=== PATIENT | male | born 1955 | race Caucasian/White ===

== ENCOUNTER → 2016-11-14 | Outpatient (CLI) | payer MEDICARE, OTHER | END | disposition home or self-care (01) | LOC: PCVCCLINIC 16:49 | PROVIDERS: ATTEND Internal Medicine Cardiovascular Disease | DX: I25.118 Atherosclerotic heart disease of native coronary artery with other forms of angina pectoris (principal); I10 Essential (primary) hypertension; I25.5 Ischemic cardiomyopathy; J44.9 Chronic obstructive pulmonary disease, unspecified; I77.89 Other specified disorders of arteries and arterioles; E78.01 Familial hypercholesterolemia; E78.00 Pure hypercholesterolemia, unspecified; M19.90 Unspecified osteoarthritis, unspecified site; Z95.5 Presence of coronary angioplasty implant and graft; Z79.82 Long term (current) use of aspirin; Z87.891 Personal history of nicotine dependence; Z88.8 Allergy status to other drugs, medicaments and biological substances; Z85.89 Personal history of malignant neoplasm of other organs and systems | CPT/HCPCS: 80061; 93005; G0463 ==

== ENCOUNTER → 2016-11-16 | Outpatient (CLI) | payer MEDICARE ==
[~2016-11-16] MED LIST: REGADENOSON 0.4 MG/5 ML DISP.SYRIN. IV ONE
--- NOTE | 2016-11-16 10:01 | PCVCIMAG ---
APPROVED REPORT Study performed: 11/16/2016 07:41:27 EXAM: Comprehensive 2D, Doppler, and color-flow Echocardiogram Patient Location: Echo lab Status: routine Other Information Study Quality: Adequate Indications Dyspnea CAD Chest Pain Ischemic Cardiomyopathy 2D Dimensions LVEF(%): 50.94 (>50%) IVSd: 10.68 (7-11mm) LVDd: 52.84 mm PWd: 9.69 (7-11mm) LVDs: 39.00 (25-40mm) Left Atrium: 44.27 (27-40mm) Aortic Root: 33.66 mm LV Single Plane 4CH: 45.94 % LV Single Plane 2CH: 50.32 %Rolon's LVEF: 48.13 % Biplane EF: 47.2 % Volumes Left Atrial Volume (Systole) Single Plane 4CH: 71.33 mLSingle Plane 2CH: 73.54 mL LA ESV Index: 61.00 mL/m2 Aortic Valve AoV Peak Janes.: 1.49 m/s AO Peak Gr.: 8.83 mmHgLVOT Max P.67 mmHg LVOT Max V: 0.96 m/s Mitral Valve E/A Ratio: 1.4 MV Decel. Time: 225.03 ms MV E Max Janes.: 0.60 m/s MV A Janes.: 0.43 m/s IVRT: 100.35 ms Pulmonary Valve PV Peak Janes.: 0.78 m/sPV Peak Gr.: 2.43 mmHg Pulmonary Vein P Vein S: 0.44 m/sP Vein A: 0.37 m/s P Vein D: 0.63 m/sP Vein A Dur.: 148.8 msec P Vein S/D Ratio: 0.70 Tricuspid Valve TR Peak Janes.: 2.20 m/s TR Peak Gr.: 19.40 mmHg Left Ventricle The left ventricle is normal size. There is normal LV segmental wall motion. There is normal left ventricular wall thickness. Left ventricular systolic function is mildly decreased.mild distal septal apex hypo LVEF is 45-50%. Grade II - pseudonormal filling dynamics. Right Ventricle The right ventricle is normal size. The right ventricular systolic function is normal. Atria The left atrium size is mildly dilated. The right atrium size is normal. Aortic Valve The aortic valve is normal in structure. No aortic regurgitation is present. There is no aortic valvular stenosis. Mitral Valve The mitral valve is normal in structure. Mild mitral regurgitation. No evidence of mitral valve stenosis. Tricuspid Valve The tricuspid valve is normal in structure. Trace tricuspid regurgitation with PAP of 26 mmHg. Pulmonic Valve The pulmonary valve is normal in structure. There is no pulmonic valvular regurgitation. Great Vessels The aortic root is normal in size. IVC is normal in size and collapses with >50% inspiration Pericardium There is no pericardial effusion. <Conclusion> The left ventricle is normal size. Left ventricular systolic function is mildly decreased. LVEF is 45-50%. Grade II - pseudonormal filling dynamics. The left atrium size is mildly dilated. The aortic valve is normal in structure. Mild mitral regurgitation. Left ventricular systolic function is mildly decreased.mild distal septal apex hypo Mild mitral regurgitation. There is no pericardial effusion. Trace tricuspid regurgitation with PAP of 26 mmHg.
--- NOTE | 2016-11-16 13:45 | PCVCIMAG ---
APPROVED REPORT Exam: Nuclear Stress Test Indication: CAD , Dyspnea, Increased Fatigue Patient Location: Out-Patient Stress Nurse: Krista Ruiz RN, Ayanna Cm RN AL Tech:Catherine Ginette [facility] Ht: 5 ft 10 in Wt: 180 lbs BSA: 2.00 m2 HR: 60 bpm BP: 142/79 mmHg BMI: 25.82 Rhythm: SR Medical History Medical History: HTN, Hyperlipidemia, COPD, Smoking - Current, SD, Dyspnea Allergies: Alteplase Cardiac Risk Factors: Age Previous Cardiac Procedures: PCI Stress Test Details Stress Test: Pharmacologic stress testing performed using 0.4 mg of regadenoson per 5 mL given IV over 10 seconds. Reason for pharmacologic stress test: physical limitation. HR Resting HR: 60 bpmMax Heart Rate (APMHR): 157 bpm Max HR Achieved: 82 bpmTarget HR (85% APMHR): 133 bpm % of APMHR: 52 Recovery HR: 69 bpm BP Resting BP: 142/79 mmHg Max BP: 144/71 mmHg Recovery BP: 150/72 mmHg ECG Resting ECG: Sinus Rhythm, nonspecific ST-T abnormalities Stress ECG: Sinus Rhythm, nonspecific ST-T abnormalities ST Change: Non-ischemic Clinical Reason for Termination: Completed protocol Stress Symptoms: Dyspnea Exercise duration: 0 min 55 sec Symptoms resolved during recovery. AL EXAM: Myocardial Perfusion REST/STRESS Imaging Protocol: Rest Tc-99m/Stress Tc-99m 1 day Resting Data Rest SPECT myocardial perfusion imaging was performed in supine position 45 minutes following the intravenous injection of 11.9 mCi of Tc-99m Sestamibi. Time of rest injection: 829 Date: 11/16/2016 Pharmacologic Stress Pharmacologic stress test was performed by injecting Regadenoson 0.4 mg IV push followed by the intravenous injection of 35.1 mCi of Tc-99m Sestamibi. Time of stress injection: 0 Date: 11/16/2016 Administration Route: IV Administration Site: Right AC Gated Stress SPECT was performed 45 minutes after stress injection. The images were gated to evaluate regional wall motion and calculate left ventricular ejection fraction. Exercise Stress Administration Site: Right Arm Study Quality Study: Good Artifact: Mild Diaphragmatic artifact Study Data Post stress, the left ventricular ejection was 60%.. SSS: 1 SRS: 3 SDS: 0 TID = 0.99. Perfusion There is a small area of mildly reduced uptake in the basal segment of the inferior wall which is seen on the stress images as well as the resting images. This area thickens and moves normally and is most consistent with attenuation artifact. Wall Motion Normal left ventricular wall motion. Clinical Findings: Nondiagnostic EKG Findings: Nonischemic Nuclear Conclusion This study is of low probability for inducible ischemia or prior infarct. Normal global and segmental LV systolic function.
== END | disposition home or self-care (01) ==
LOC: PCVCIMAG 07:44
PROVIDERS: ATTEND Internal Medicine Cardiovascular Disease
DX: I08.1 Rheumatic disorders of both mitral and tricuspid valves (principal); I25.10 Atherosclerotic heart disease of native coronary artery without angina pectoris; I25.5 Ischemic cardiomyopathy; I10 Essential (primary) hypertension; J44.9 Chronic obstructive pulmonary disease, unspecified; I25.2 Old myocardial infarction; E78.5 Hyperlipidemia, unspecified; E78.01 Familial hypercholesterolemia; I77.89 Other specified disorders of arteries and arterioles; Z72.0 Tobacco use; Z79.82 Long term (current) use of aspirin
CPT/HCPCS: 78452; 93017; 93306; A9500; J2785

== ENCOUNTER → 2017-03-23 | Outpatient (CLI) | payer MEDICARE ==
--- NOTE | 2017-03-23 19:31 | PCVCIMAG ---
EXAM: BILATERAL CAROTID DUPLEX INDICATION: Carotid Occlusive Disease. Previous neck radiation. FINDINGS: Doppler Measurements (centimeters per second): RIGHT: Peak CCA-103, Peak ECA-116, Diastolic ICA-33, Peak ICA-137, ICA/CCA Ratio-1.3. LEFT: Peak CCA-316, Peak ECA-188, Diastolic ICA-40, Peak ICA-80, ICA/CCA Ratio-0.3. RIGHT CAROTID: The carotid bulb has mild plaque. The proximal internal carotid artery shows 40-50% stenosis. The common carotid artery shows no significant stenosis. The external carotid artery shows no significant stenosis. LEFT CAROTID: The carotid bulb has mild plaque. The proximal internal carotid artery shows <40% stenosis. The common carotid artery shows 80% stenosis. The external carotid artery shows 60% stenosis. Antegrade flow in both vertebral arteries. IMPRESSION: <40% stenosis of the right internal carotid artery with mild plaque. <40% stenosis of the left internal carotid artery with mild plaque. 80% smooth tapered stenosis mid/upper left common carotid artery. LOC:[place] [id number]
== END | disposition home or self-care (01) ==
LOC: PCVCCLINIC 14:14
PROVIDERS: ATTEND Internal Medicine Cardiovascular Disease
DX: I65.23 Occlusion and stenosis of bilateral carotid arteries (principal); I25.10 Atherosclerotic heart disease of native coronary artery without angina pectoris; I10 Essential (primary) hypertension; I25.5 Ischemic cardiomyopathy; E78.00 Pure hypercholesterolemia, unspecified; J44.9 Chronic obstructive pulmonary disease, unspecified; I77.9 Disorder of arteries and arterioles, unspecified; M79.605 Pain in left leg; M79.604 Pain in right leg; R10.30 Lower abdominal pain, unspecified; F17.210 Nicotine dependence, cigarettes, uncomplicated; Z79.82 Long term (current) use of aspirin; Z79.899 Other long term (current) drug therapy
CPT/HCPCS: 80061; 93005; 93880; G0463

== ENCOUNTER → 2017-04-24 | Outpatient (CLI) | payer MEDICARE | END | disposition home or self-care (01) | LOC: PCVCIMAG 08:43 | DX: I73.9 Peripheral vascular disease, unspecified (principal); R10.30 Lower abdominal pain, unspecified; I70.8 Atherosclerosis of other arteries | CPT/HCPCS: 93925; 93978 ==

== ENCOUNTER → 2017-09-21 | Outpatient (CLI) | payer MEDICARE | END | disposition home or self-care (01) | LOC: PCVCCLINIC 14:18 | DX: I25.10 Atherosclerotic heart disease of native coronary artery without angina pectoris (principal); I10 Essential (primary) hypertension; I46.9 Cardiac arrest, cause unspecified; G89.29 Other chronic pain; C76.0 Malignant neoplasm of head, face and neck; E78.00 Pure hypercholesterolemia, unspecified; I25.5 Ischemic cardiomyopathy; I73.9 Peripheral vascular disease, unspecified; I65.23 Occlusion and stenosis of bilateral carotid arteries; F17.200 Nicotine dependence, unspecified, uncomplicated; Z88.8 Allergy status to other drugs, medicaments and biological substances; Z79.82 Long term (current) use of aspirin; Z79.899 Other long term (current) drug therapy | CPT/HCPCS: 93005; G0463 ==

== ENCOUNTER → 2018-03-29 | Outpatient (CLI) | payer MEDICARE ==
--- NOTE | 2018-03-29 11:18 | PCVCIMAG ---
EXAM: BILATERAL CAROTID DUPLEX INDICATION: Carotid occlusive disease. Previous radiation to the neck. FINDINGS: Doppler Measurements (centimeters per second): RIGHT: Peak CCA-128, Peak ECA-128, Diastolic ICA-49, Peak ICA-162, ICA/CCA Ratio-1.5. LEFT: Peak CCA-0, Peak ECA-0, Diastolic ICA-0, Peak ICA-0, ICA/CCA Ratio-0. RIGHT CAROTID: The carotid bulb has moderate plaque. The proximal internal carotid artery shows 50-60% stenosis. The common carotid artery shows no significant stenosis. The external carotid artery shows no significant stenosis. LEFT CAROTID: Since March 2017 complete occlusion has developed in the left common carotid artery, left internal carotid artery, and proximal left external carotid artery. Antegrade flow in both vertebral arteries. IMPRESSION: 50-60% stenosis of the right internal carotid artery with moderate plaque. Interval occlusion of the left common carotid artery, cervical left internal carotid artery, and left external carotid artery since 2016 study. LOC:[id number]
== END | disposition home or self-care (01) ==
LOC: PCVCIMAG 09:28
PROVIDERS: ATTEND Internal Medicine Cardiovascular Disease
DX: I65.23 Occlusion and stenosis of bilateral carotid arteries (principal); I25.10 Atherosclerotic heart disease of native coronary artery without angina pectoris; I25.5 Ischemic cardiomyopathy; I10 Essential (primary) hypertension; E78.00 Pure hypercholesterolemia, unspecified; C76.0 Malignant neoplasm of head, face and neck; R07.9 Chest pain, unspecified; J44.9 Chronic obstructive pulmonary disease, unspecified; F17.210 Nicotine dependence, cigarettes, uncomplicated
CPT/HCPCS: 36415; 80061; 93005; 93880; G0463

== ENCOUNTER → 2018-04-02 | Outpatient (CLI) | payer MEDICARE ==
[~2018-04-02] MED LIST changes: +DIAZEPAM 10 MG TABLET. ONE; +HEPARIN for ARTERIAL LINE 1,500 ML ONE; +IOHEXOL 300 MG/ML 100ML VIAL. ONE; +IOHEXOL 350 MG/ML 100 ML VIAL. ONE; +LIDOCAINE 1%/EPI 1:100,000 20 ML VIAL. ONE; +MIDAZOLAM HCL/PF 2 MG/2 ML VIAL. ONE; -REGADENOSON 0.4 MG/5 ML DISP.SYRIN. IV ONE; +fentaNYL PF VIAL 100 MCG/2 ML VIAL ONE; +hydrALAZINE 20 MG/ML VIAL. ONE
--- NOTE | 2018-04-02 23:48 | PCVCINTER ---
EXAM: 1. CERVICOEPHALIC ARCH AORTOGRAM. 2. BILATERAL CAROTID ANGIOGRAPHY. 3. LEFT VERTEBROBASILAR ANGIOGRAPHY. 4. BILATERAL RENAL ANGIOGRAPHY. 5. BILATERAL ILEOFEMORAL ANGIOGRAPHY. INDICATION: Carotid occlusive disease. Left subclavian steal. Hypertension. Renal atherosclerosis. Left amaurosis fugax. Leg pain. PROCEDURE: Procedure and risks of the procedures listed above were discussed with the patient and consent obtained. Risks including but not limited to bleeding, infection, stroke, vascular injury, neurologic injury, embolization, allergic reactions, and contrast-induced nephropathy requiring dialysis were discussed as appropriate and consent obtained. Patient was placed on the angiography table. IV conscious sedation was used throughout procedure with appropriate monitoring from 3:00 PM through 4:00 PM. The right groin was prepped and draped in the normal sterile fashion. Ultrasound was used to interrogate the right groin and demonstrate the right common femoral artery. An ultrasound image was saved. Under ultrasound guidance a 21 gauge needle was used to gain access into the right common femoral artery and a 6F vascular sheath was placed. Catheter was placed into the ascending aorta and cervicocephalic aortic arch angiogram performed. Catheter was placed into the suprarenal abdominal aorta and abdominal aortic angiogram performed. Catheter was placed at the aortic bifurcation and bilateral iliofemoral angiography performed. Catheter was placed into the right common carotid artery and right common carotid angiogram performed. Catheter was placed into the left common carotid artery and left common carotid angiogram performed. Catheter was placed into the left subclavian artery and left vertebro-basilar angiogram performed. Catheter was placed into the right renal artery and right renal angiogram performed. Catheter was placed into the left renal artery and left renal angiogram performed. Dr. Herman joined the procedure and he then performed coronary angiography. Please see his separate dictation for full details. Catheters and wires were removed and hemostasis obtained using the FISH device. No immediate complications. FINDINGS: Cervicocephalic arch aortogram: The innominate artery is patent. There is occlusion of the left common carotid artery shortly after its origin which arises as a common origin with the innominate artery. The left subclavian artery is patent. Right common carotid angiogram: This injection fills the right and left anterior and middle cerebral distributions which are otherwise unremarkable. The petrous and cavernous right carotid artery is patent. The cervical right internal carotid artery is widely patent throughout. The right common carotid artery shows mild ulcerative plaque proximal portion but no evidence of flow-limiting stenosis. The right external iliac artery shows good patency. Left common carotid angiogram: There is occlusion of the left common carotid artery shortly after its origin. The left internal carotid artery is not visualized on any injection consistent with occlusion as noted on prior ultrasound. Left vertebrobasilar angiogram: Left vertebral artery is patent as is the basilar artery and left posterior cerebral artery. Flash filling of the left middle cerebral distribution is seen. The right P1 segment is hypoplastic. Abdominal aortogram: There is one right and 2 left renal arteries. Mild ectasia infrarenal abdominal aorta. Right renal angiogram: Minimal plaque proximal vessel does not cause significant stenosis. Left renal angiogram: There are 2 renal arteries with the upper renal artery being accessory renal artery. Lower renal artery is dominant showing mild plaque proximal without significant stenosis. Bilateral iliofemoral angiogram: The right common and external iliac arteries are patent. High-grade stenosis right internal iliac artery. Right common femoral and profunda femoral arteries show adequate patency. Moderate plaque left common iliac artery without significant stenosis. Left external iliac arteries patent. Mild stenosis left internal iliac artery. Left common femoral and profunda femoral arteries are patent. Visualized portions of the upper superficial femoral arteries are patent bilaterally. IMPRESSION: Complete occlusion cervical left common carotid and internal carotid arteries as reviewed above. The right carotid artery is widely patent and supplies the anterior and middle cerebral distributions bilaterally. LOC:OFFICE
--- NOTE | 2018-04-03 17:39 | PCVCINTER ---
APPROVED REPORT Study performed: 04/02/2018 16:25:35 Patient Details Patient Status: Out-Patient Room #: 4 The patient is a 62 year-old Male Event Personnel Margarita Xavier RN, Wenceslao De La Torre RN, Jalil Bolanos RT(R), Salome Mustafa RT(R)() Risk Factors Arterial HypertensionDysplipidemia (Type: 1), Cerebrovascular DiseaseFamily HistoryPeripheral Vascular Disease, Chronic Lung DiseaseHypercholesterolemia, Last Creatanine 0.7Tobacco History (Current/Recent(w/in 1 year)) Previous Procedures/Diagnoses Previous PCI, Previous CHFPrevious AL, CHF, CAD, Cerebrovascular disease, Chronic lung disease->COPD, Hypertension Procedure Narrative The right coronary system was accessed and visualized with a JR4 catheter. The left coronary system was accessed and visualized with a JL4 catheter. The left ventricle was accessed and visualized with a Straight Pigtail catheter. Left ventriculogram was performed in BARKLEY projection. Closure device was deployed with a 6 Fr FISH. Hemostasis was obtained with manual pressure following sheath removal without any complications. The patient tolerated the procedure well and there were no complications associated with the procedure. There was no hematoma. Hemodynamics The aortic pressure is 167/73 mmHg with a mean of 110 mmHg. The left ventricular pressure is 163/4 mmHg with a mean of 11 mmHg. Conclusion #1 normal left jugular size with mild inferior basilar mid inferior wall hypokinesis EF 50-55% #2 left main is moderate size free of disease giving rise to LAD and circumflex. #3 the LAD is a mid vessel stent which has mild in-stent restenosis there is an eccentric 40% lesion proximal to the stent LAD preserved as it extends around the apex. #4 first diagonal branch has previous stent with mild restenosis moderate distribution no occlusive disease #5 circumflex OM is large in distribution although anatomically nondominant the OM system is patent a proximal stent is patent. There is left to left collateralization of the PDA and NIALL off of an occluded RCA. #6 large dominant right coronary is proximally occluded multiple prior stents placed in the distal right PDA NIALL occluded these are faintly filled in from the left system. Recommendations and plan continue aggressive risk factor modification. No indication for intervention here. This RCA presumably long-time occluded and collateralized via the left system. Close follow-up will be maintained
== END | disposition home or self-care (01) ==
LOC: PCVCINTER 12:12
PROVIDERS: ATTEND Nuclear Medicine Nuclear Cardiology
DX: I70.1 Atherosclerosis of renal artery (principal); I65.23 Occlusion and stenosis of bilateral carotid arteries; I25.10 Atherosclerotic heart disease of native coronary artery without angina pectoris; I77.811 Abdominal aortic ectasia; I11.0 Hypertensive heart disease with heart failure; I50.9 Heart failure, unspecified; J44.9 Chronic obstructive pulmonary disease, unspecified; I25.2 Old myocardial infarction; M19.90 Unspecified osteoarthritis, unspecified site; E78.00 Pure hypercholesterolemia, unspecified; I25.5 Ischemic cardiomyopathy; F17.210 Nicotine dependence, cigarettes, uncomplicated; Z95.5 Presence of coronary angioplasty implant and graft; Z98.890 Other specified postprocedural states; Z82.49 Family history of ischemic heart disease and other diseases of the circulatory system; Z72.89 Other problems related to lifestyle; Z88.8 Allergy status to other drugs, medicaments and biological substances; Z79.899 Other long term (current) drug therapy; Z79.82 Long term (current) use of aspirin; Z85.89 Personal history of malignant neoplasm of other organs and systems
CPT/HCPCS: 36223; 36225; 36252; 75630; 76937; 93458; 99152; 99153; C1751; C1760; C1769; C1894; J0360; J1644; J2250; J3010; J3490; Q9967; 36222

== ENCOUNTER → 2018-06-20 | Outpatient (CLI) | payer MEDICARE | END | disposition home or self-care (01) | LOC: PCVCCLINIC 12:47 | PROVIDERS: ATTEND Internal Medicine Cardiovascular Disease | DX: I25.10 Atherosclerotic heart disease of native coronary artery without angina pectoris (principal); I10 Essential (primary) hypertension; E78.00 Pure hypercholesterolemia, unspecified; I73.9 Peripheral vascular disease, unspecified; I65.22 Occlusion and stenosis of left carotid artery; J44.9 Chronic obstructive pulmonary disease, unspecified; F17.210 Nicotine dependence, cigarettes, uncomplicated; Z79.899 Other long term (current) drug therapy | CPT/HCPCS: 36415; 80061; 93005; G0463 ==

== ENCOUNTER → 2019-01-17 | Outpatient (CLI) | payer MEDICARE ==
--- NOTE | 2019-01-17 17:07 | PCVCIMAG ---
EXAM: BILATERAL CAROTID DUPLEX INDICATION: Carotid Occlusive Disease. FINDINGS: Doppler Measurements (centimeters per second): RIGHT: Peak CCA-103, Peak ECA-101, Diastolic ICA-28, Peak ICA-114, ICA/CCA Ratio-1.1. LEFT: Peak CCA-0, Peak ECA-0, Diastolic ICA-0, Peak ICA-0, ICA/CCA Ratio-0. RIGHT CAROTID: The carotid bulb has mild plaque. The proximal internal carotid artery shows <40% stenosis. The common carotid artery shows no significant stenosis. The external carotid artery shows no significant stenosis. LEFT CAROTID: The carotid bulb has extensive plaque. Complete chronic occlusion common carotid, internal carotid, external carotid arteries. Antegrade flow in both vertebral arteries. IMPRESSION: <40% stenosis of the right internal carotid artery with mild plaque. Chronic occlusion of the left common carotid, external carotid, and internal carotid arteries. Little overall change since 2018 study. LOC:[id number]
== END | disposition home or self-care (01) ==
LOC: PCVCIMAG 12:47
PROVIDERS: ATTEND Internal Medicine Cardiovascular Disease
DX: I65.23 Occlusion and stenosis of bilateral carotid arteries (principal); E78.00 Pure hypercholesterolemia, unspecified; F17.200 Nicotine dependence, unspecified, uncomplicated; I25.10 Atherosclerotic heart disease of native coronary artery without angina pectoris; I73.9 Peripheral vascular disease, unspecified; I25.5 Ischemic cardiomyopathy; I10 Essential (primary) hypertension; J44.9 Chronic obstructive pulmonary disease, unspecified; Z79.82 Long term (current) use of aspirin; Z88.8 Allergy status to other drugs, medicaments and biological substances; Z79.899 Other long term (current) drug therapy; Z72.89 Other problems related to lifestyle
CPT/HCPCS: 36415; 80061; 93005; 93880; G0463